=== PATIENT | male | born 1985 | race African-American/Black ===

== ENCOUNTER 2022-11-22 18:35 | Emergency (ER) | payer MEDICAID ==
[~2022-11-22] VITALS: Ht 190.5 cm; Wt 156.0 kg
[2022-11-22 19:18] VITALS: BP 136/70
[2022-11-22 19:25] LABS: BASOPHILS % (AUTO) 0.6 % (0.0-5.0); EOSINOPHILS % (AUTO) 1.4 % (0.0-8.0); HEMATOCRIT 45.7 % (42-54); LYMPHOCYTES % (AUTO) 28.6 % (21.0-51.0); MEAN CORPUSCULAR HEMOGLOBIN 28.1 pg (27.0-33.0); MEAN CORPUSCULAR HGB CONC 31.9 g/dL (32.0-36.0); MEAN CORPUSCULAR VOLUME 87.9 fL (79-99); MONOCYTES % (AUTO) 7.1 % (3.0-13.0); NEUTROPHILS % (AUTO) 62.2 % (40.0-77.0); PLATELET COUNT (AUTO) 241 K/uL (130-400); RED CELL DISTRIBUTION WIDTH 13.4 % (11.0-15.5); WHITE BLOOD COUNT (AUTO) 7.2 K/uL (4.8-10.8)
[2022-11-22 19:44] LABS: CREATININE 1.4 mg/dL (0.5-1.5); POTASSIUM 4.2 mmol/L (3.5-5.1)
[2022-11-22 19:49] LABS: ALBUMIN 3.8 g/dL (3.5-5.0)
[2022-11-22] MEDS ORDERED: PRED20TA3 PO (20:11)
[2022-11-22] MEDS ORDERED: SOLU-MEDROL 125MG VIAL IM ONE (20:30)
== END 2022-11-22 20:30 | disposition home or self-care (01) ==
LOC: EDH 18:35
DX: B34.9 Viral infection, unspecified (principal); I10 Essential (primary) hypertension; E78.00 Pure hypercholesterolemia, unspecified; E11.9 Type 2 diabetes mellitus without complications
CPT/HCPCS: 99284; 71045; 80053; 85025; 87880; 36415; 96372; J2930